=== PATIENT | male | born 1965 | race African-American/Black ===

== ENCOUNTER 2021-03-08 21:12 | Emergency (ER) | payer SELFPAY ==
[~2021-03-08] VITALS: Ht 185.4 cm; Wt 90.7 kg
[2021-03-08 21:16] VITALS: BP 113/67
[2021-03-09] MEDS ORDERED: BACITRACIN OINT 500 UNITS/GM PKT TP ONE ×2 (00:41→00:45)
[2021-03-09 01:29] VITALS: BP 121/68
== END 2021-03-09 01:30 | disposition home or self-care (01) ==
LOC: MED 21:12
DX: L97.529 Non-pressure chronic ulcer of other part of left foot with unspecified severity (principal)
CPT/HCPCS: 99282

== ENCOUNTER 2021-09-20 04:13 | Emergency (ER) | payer SELFPAY ==
[~2021-09-20] VITALS: Ht 167.6 cm; Wt 77.1 kg
[2021-09-20 04:30] VITALS: BP 146/83
--- NOTE | 2021-09-20 04:33 | NUR ---
TO LOBBY A/W BED AMBULATORY
--- NOTE | 2021-09-20 08:56 | NUR ---
ATTEMPTED TO CALL PATIENT, BUT NO ANSWER AT THIS TIME
--- NOTE | 2021-09-20 08:57 | NUR ---
PATIENT ELOPED FROM FACILITY. DISCHARGE INSTRUCTIONS NOT GIVEN TO PATIENT. DR. BUCHANAN NOTIFIED.
[2021-09-20 09:23] VITALS: BP 146/83
== END 2021-09-20 08:57 | disposition left against medical advice (07) ==
LOC: MED 04:13
DX: M25.551 Pain in right hip (principal); Z87.81 Personal history of (healed) traumatic fracture; X58.XXXA Exposure to other specified factors, initial encounter; Y93.89 Activity, other specified; Y92.89 Other specified places as the place of occurrence of the external cause; Y99.8 Other external cause status
CPT/HCPCS: 73502; 73562; 99284